=== PATIENT | female | born 1985 | race Caucasian/White ===

== ENCOUNTER → 2018-01-03 13:13 | Outpatient (CLI) | payer BC, SELFPAY ==
[2018-01-03 14:50] LABS: Group B Strep DNA By PCR Negative (Negative); Internal Control PASS; Probe Check PASS; Specimen Processing Control PASS
== END ==
PROVIDERS: Family Provider Family Medicine; PCP Family Medicine; Visit Provider Obstetrics & Gynecology
DX: Z36.85 Encounter for antenatal screening for Streptococcus B (principal)
CPT/HCPCS: 87081; 87653

== ENCOUNTER 2018-01-23 06:55 | Inpatient (IN) | payer BC, SELFPAY ==
[2018-01-23 07:20] VITALS: BMI 32.2
[2018-01-23] MEDS: Lactated Ringers 1,000 ML 50 ML IV ×2 (07:30→15:22)
[2018-01-23 07:57] LABS: Hematocrit 38.9 % (37-47); Hemoglobin 12.7 g/dl (12.0-15.0); Mean Corp Hgb Conc 32.6 g/gl (32-36); Mean Corpuscular Hgb 29.9 pg (27.0-32.0); Mean Corpuscular Volume 91.5 fL (81-99); Mean Platelet Vol. 11.2 fl (6.2-12.0); Platelet Count 160 K/mm3 (150-450); RBC Distribution Width CV 14.6 % (11.6-14.6); RBC Distribution Width SD 48.7 fl (35.1-43.9); Red Blood Count 4.25 M/mm3 (4.2-5.4); White Blood Count 8.7 K/mm3 (4.4-11.0)
[2018-01-23] MEDS: Oxytocin 30 units/NS 500 ml 30 UNITS/500 ML IV.SOLN IV (08:00)
[2018-01-23 08:02] LABS: Scan Indicated on CBC? Y/N NO
--- NOTE | 2018-01-23 12:49 | PCM.PN.BLA ---
Progress Note LABOR PROGRESS NOTE. 40 wk induction. h/o LGA delivery prior . Has been up walking halls, changing positions. Several intermittent gushes of fluid Declines pain med for now. UC a//bubba 3-4/10 pain scale AVSS Pitocin at 10 mIU/min EFM 110-120s with avg / mod variability. Accels to 150s. Intermittent tracing noted. Category I tracing. UCs q 2-4 mins CX: deferred as not very painful, and d/t AROM. A/P: 40 wk induction continue pitocin after AROM this AM. OK for epidural if / when requests. Anticipate
[2018-01-23] MEDS: fentaNYL-bupivacaine (epidural) 100 ML BAG EPIDURAL (15:41)
[2018-01-23] MEDS: Oxytocin 30 units/NS 500 ml 30 UNITS/500 ML IV.SOLN 334 UNITS IV (16:19)
[2018-01-23] MEDS: Oxytocin 30 units/NS 500 ml 30 UNITS/500 ML IV.SOLN 167 UNITS IV (16:50)
--- NOTE | 2018-01-23 18:26 | PCM.DCVAG ---
Discharge Diet: No Restrictions Discharge Activity: May Shower, May Take a Tub Bath Return to work on:: 03/06/18 May resume sexual activity in: 4-6 weeks Additional Activity Instructions:: Nothing in the vagina for 4-6 weeks. You may return to work/school in 6 weeks. Additional Instructions: If you experience any of the following, contact your healthcare provider. Bleeding that soaks a pad every hour for 2 hours Fever 100.4 or higher Unrelieved abdominal pain Problems urinating (including inability to urinate or burning while urinating). Visual changes Severe headache Flu-like symptoms Pain or redness in one of both of your breasts Pain, warmth, tenderness or swelling in your legs, especially the calf area Frequent nausea and vomiting Symptoms of depression or anxiety If you experience any of the following, call 911 or go to the nearest Emergency Room. Chest pain Problems breathing Seizure activity Partial or complete paralysis of a body part, slurred speech, weakness or drooping of the face, or a sudden inability to walk or hold your balance Allergies/Adverse Reactions: Allergies No Known Allergies Allergy (Verified 09/25/14 11:37) Medications to take at Discharge Vits [Prenatabs FA ] 1 tablet PO DAILY 08/17/14 Orders to be completed after discharge: Electric breast pump Time Frame: 1 Year, Location: None Selected Please Follow Up With: Ias Navarro MD - [phone] When: Call to make an appointment with your doctor in 6 weeks. Primary Care Physician: Luis E Amos MD [Primary Care Provider] - Proposed Discharge Date: 01/25/18
--- NOTE | 2018-01-23 18:28 | DCINST_ITS ---
Discharge Diet: No Restrictions Discharge Activity: May Shower, May Take a Tub Bath Return to work on:: 03/06/18 May resume sexual activity in: 4-6 weeks Additional Activity Instructions:: Nothing in the vagina for 4-6 weeks. You may return to work/school in 6 weeks. Additional Instructions: If you experience any of the following, contact your healthcare provider. * Bleeding that soaks a pad every hour for 2 hours * Fever 100.4 or higher * Unrelieved abdominal pain * Problems urinating (including inability to urinate or burning while urinating) . * Visual changes * Severe headache * Flu-like symptoms * Pain or redness in one of both of your breasts * Pain, warmth, tenderness or swelling in your legs, especially the calf area * Frequent nausea and vomiting * Symptoms of depression or anxiety If you experience any of the following, call 911 or go to the nearest Emergency Room. * Chest pain * Problems breathing * Seizure activity * Partial or complete paralysis of a body part, slurred speech, weakness or drooping of the face, or a sudden inability to walk or hold your balance Allergies/Adverse Reactions: Allergies No Known Allergies Allergy (Verified 09/25/14 11:37) Medications to take at Discharge Vits [Prenatabs FA ] 1 tablet PO DAILY 08/17/14 Orders to be completed after discharge: Electric breast pump Time Frame: 1 Year, Location: None Selected Please Follow Up With: Isa Navarro MD - [phone] When: Call to make an appointment with your doctor in 6 weeks. Primary Care Physician: Luis E Amos MD [Primary Care Provider] - Proposed Discharge Date: 01/25/18
--- NOTE | 2018-01-23 18:28 | PCM.OB.VAG ---
Vaginal Delivery Maternal Presentation: Elective Induction 40 wk h/o macrosomia with prior delivery Method of Induction: Pitocin, Amniotomy Amniotic Membrane Rupture Type: Artificial - full ROM at approx 10 am Rupture of Membrane time: 10:00 Amniotic Fluid Description: Clear Final SARWAT: 01/23/18 Final SARWAT Source: US <20 weeks Gestational age: 40 Weeks and 0 Days Date of Procedure: 01/23/18 Pre-Operative Diagnosis: 40 wk induction Post-Operative Diagnosis: same Surgery/ Procedure Performed: Spontaneous Vaginal Delivery Type of Anesthesia: Epidural - not fully effective d/t rapid progress of labor from 5-9 cm. Description of Procedure: Pt with rapid progression for 5-9 cm. FHT in 90s but with avg variability. Prolonged deceleration, did not resolve with position changes, Pitocin off. Maternal BP stable at this time. 8-9 cm but multiparous and soft cervix. Pt to dorsal supine position and encouraged to push. pushed effectively to deliver araujo viable female over intact perineum to 1st posterior perineal/vaginal laceration. Head delivered OA. Shoulders delivered easily with small , audible pop of R shoulder/clavicle (peds made aware) Baby to maternal abdomen with spont vigorous cry. Delayed cord clamp x two and cut. Routine venous cord gas collected. unable to collect ABG. PP exam: single laceration noted, hemstatic but reapproximated under local anesthesia with single stitch of 3-0 Vicryl. No other lacerations Placenta delivered by spontaneous expulsion, expression. 3V cord, normal appearing and intact with trailing membranes. EBL 300 cc Pt and infant tolerated delivery well. to recovery , stable condition. Ray Tim counts correct. Presentation: Vertex, VANIA Placental Delivery Description: Spontaneous, Expressed Placenta Disposition: [facility] Cord Vessel Description: 3 Vessels Cord Gases drawn per routine: VBG Cord Entanglement: None Estimated Blood Loss: 300 A gender: Female (1 minute): 8 (5 minute): 9 Episiotomy Description: None Laceration: Midline, Perineal Extension/lac, 1st degree - repaired with 1% lidocaine local to hemostatic and intact with 3-0 vicryl Medications given after delivery: IV Pitocin Complications: None
--- NOTE | 2018-01-23 18:36 | OP.PCM_ITS ---
Vaginal Delivery Maternal Presentation: Elective Induction 40 wk h/o macrosomia with prior delivery Method of Induction: Pitocin, Amniotomy Amniotic Membrane Rupture Type: Artificial - full ROM at approx 10 am Rupture of Membrane time: 10:00 Amniotic Fluid Description: Clear Final SARWAT: 01/23/18 Final SARWAT Source: US <20 weeks Gestational age: 40 Weeks and 0 Days Date of Procedure: 01/23/18 Pre-Operative Diagnosis: 40 wk induction Post-Operative Diagnosis: same Surgery/ Procedure Performed: Spontaneous Vaginal Delivery Type of Anesthesia: Epidural - not fully effective d/t rapid progress of labor from 5-9 cm. Description of Procedure: Pt with rapid progression for 5-9 cm. FHT in 90s but with avg variability. Prolonged deceleration, did not resolve with position changes, Pitocin off. Maternal BP stable at this time. 8-9 cm but multiparous and soft cervix. Pt to dorsal supine position and encouraged to push. pushed effectively to deliver araujo viable female over intact perineum to 1st posterior perineal/ vaginal laceration. Head delivered OA. Shoulders delivered easily with small , audible pop of R shoulder/clavicle (peds made aware) Baby to maternal abdomen with spont vigorous cry. Delayed cord clamp x two and cut. Routine venous cord gas collected. unable to collect ABG. PP exam: single laceration noted, hemstatic but reapproximated under local anesthesia with single stitch of 3-0 Vicryl. No other lacerations Placenta delivered by spontaneous expulsion, expression. 3V cord, normal appearing and intact with trailing membranes. EBL 300 cc Pt and infant tolerated delivery well. to recovery , stable condition. Ray Tmi counts correct. Presentation: Vertex, VANIA Placental Delivery Description: Spontaneous, Expressed Placenta Disposition: [facility] Cord Vessel Description: 3 Vessels Cord Gases drawn per routine: VBG Cord Entanglement: None Estimated Blood Loss: 300 Infant A gender: Female (1 minute): 8 (5 minute): 9 Episiotomy Description: None Laceration: Midline, Perineal Extension/lac, 1st degree - repaired with 1% lidocaine local to hemostatic and intact with 3-0 vicryl Medications given after delivery: IV Pitocin Complications: None
[2018-01-23] MEDS: 0.9% Saline Lock 10 ML Syringe IV (19:00)
[2018-01-23 19:30] VITALS: BP 129/75; PULSE 71; RESP 16; TEMP 36.3; O2SAT 97
[2018-01-24 00:50] VITALS: BP 136/78; PULSE 70; RESP 16; TEMP 36.3; O2SAT 98
[2018-01-24] MEDS: Ibuprofen 600 MG Tablet PO (00:59)
[2018-01-24 03:40] VITALS: BP 125/66; PULSE 75; RESP 16; TEMP 36.3; O2SAT 97
--- NOTE | 2018-01-24 08:29 | PCM.PN.OB ---
Subjective: PPD#1 induction at 40 wk EGA Doing well. No concerns voiced. would like to go home later this evening if baby is released. Nursing well. Minimal discomfort. Baby only 8+ lbs which is small compared to her last baby. - Physical Exam General: Alert, Oriented x3, Cooperative, No apparent distress HEENT: Atraumatic Neck: Supple Abdomen: Soft - Fundus firm NT at inferior to umbilicus Neurological: Cranial nerves II-XII grossly intact Psych/Mental Status: Normal Affect Vital Signs Temp Pulse Resp BP Pulse Ox 97.4 F L 75 16 125/66 H 97 01/24/18 03:40 01/24/18 03:40 01/24/18 03:40 01/24/18 03:40 01/24/18 03:40 Oxygen Delivery Method Room Air Weight: 90.6 kg Body Mass Index (BMI) 32.2 Intake and Output for Last 24 Hours 01/22/18 01/23/18 01/24/18 23:59 23:59 23:59 Intake Total 3174 / 3174 Output Total 3350 / 3350 Balance -176 / -176 Laboratory Tests Past 24 Hrs 01/23/18 07:30 Blood Type AB POSITIVE Antibody Screen NEGATIVE Medical Necessity - Tobacco Use Smoking Status: Never smoker Assessment/Plan PPD#1 Induction 40 wk for h/o LGA Stable pp. continue routine care. OK to dischg later today if baby released and pt request
[2018-01-24 08:36] VITALS: BP 121/77; PULSE 52; RESP 16; TEMP 35.9; O2SAT 98
[2018-01-24] MEDS: Prenatal Vits Tablet 1 TABLET PO (11:47)
[2018-01-24 12:02] VITALS: BP 122/72; PULSE 75; RESP 18; TEMP 36; O2SAT 97
[2018-01-24 16:00] VITALS: BP 131/82; PULSE 65; RESP 16; TEMP 36.1; O2SAT 100
[2018-01-24 20:30] VITALS: BP 124/69; PULSE 71; RESP 16; TEMP 36.4
[2018-01-25 01:20] VITALS: BP 119/68; PULSE 60; RESP 16; TEMP 36.6
[2018-01-25 08:00] VITALS: BP 116/66; PULSE 75; RESP 16; TEMP 36.3; O2SAT 96
--- NOTE | 2018-01-25 08:20 | PCM.PN.OB ---
Subjective: PPD#2 Doing well. baby had to stay for bilirubin levels. Objective: Nursing personnel in room reviewed baby's bilirubin curves. Likely baby will be able to go home today. Per nursing. baby up all night nursing and Alana has had very little sleep. - Physical Exam General: Alert, Oriented x3, Cooperative, No apparent distress HEENT: Atraumatic Neck: Supple Neurological: Cranial nerves II-XII grossly intact Psych/Mental Status: Normal Affect Vital Signs Temp Pulse Resp BP Pulse Ox 97.8 F 60 16 119/68 100 01/25/18 01:20 01/25/18 01:20 01/25/18 01:20 01/25/18 01:20 01/24/18 16:00 Oxygen Delivery Method Room Air Weight: 90.6 kg Body Mass Index (BMI) 32.2 Intake and Output for Last 24 Hours 01/23/18 01/24/18 01/25/18 23:59 23:59 23:59 Intake Total 3174 / 3174 Output Total 3350 / 3350 Balance -176 / -176 Medical Necessity - Tobacco Use Smoking Status: Never smoker Assessment/Plan PPD#2 Induction 40 wk for h/o LGA Stable pp. D/C home today. To hotel status if baby is not released. RTO in 6 wk for pp check.
[2018-01-25] MEDS: Senna/Docusate Sodium 1 Tablet PO (08:21)
== END 2018-01-25 09:35 | disposition home or self-care (01) | DRG 775 ==
PROVIDERS: Admitting Provider Obstetrics & Gynecology; Family Provider Family Medicine; PCP Family Medicine; Visit Provider Obstetrics & Gynecology
DX: O48.0 Post-term pregnancy (principal); O70.0 First degree perineal laceration during delivery; O76 Abnormality in fetal heart rate and rhythm complicating labor and delivery; Z3A.40 40 weeks gestation of pregnancy; O99.02 Anemia complicating childbirth; Z37.0 Single live birth
CPT/HCPCS: 59025; 59050; 85027; 86850; 86900; 99218; J7120; A4216; G0378